=== PATIENT | male | born 1950 | race Caucasian/White ===

== ENCOUNTER → 2016-09-19 | Outpatient (CLI) | payer BC ==
[~2016-09-19] VITALS: Ht 193 cm; Wt 103.4 kg
[~2016-09-19] MED LIST: AMBIEN 10MG10 MG PO; ANDROGEL1% TOP; ASPIRIN E.C. 8181 MG PO; EPA FISH OIL1 SGL PO; FLAXSEED OIL1000 MG PO; FLONASE NASAL S16 GM; GLUCOSAMINE/CHONDROI PO; MULTI VITAMINS1 TAB PO; NIFEREX-150 501 CA1 PO; PRIL40 PO; PROBIOTICA100 Milli1 PO; RELAFEN750 MG PO; SINGULAIR 110 MG/TAB PO; VICODIN 5/5001 UDTAB PO; [UNRECOGNIZED DRUG - OTHER]
[2016-09-19 08:33] VITALS: BP 146/87; PULSE 64
[2016-09-19 09:45] VITALS: BP 134/93; PULSE 59
== END ==
LOC: COL.RAD 08:00
DX: M54.2 Cervicalgia (principal)
CPT/HCPCS: J1100

== ENCOUNTER 2017-08-11 08:15 | Outpatient (RCR) | payer BC | END 2017-08-16 | LOC: WSPT | DX: M54.5 Low back pain (principal); M25.50 Pain in unspecified joint ==

== ENCOUNTER → 2017-08-18 | Outpatient (CLI) | payer BC | LOC: COL.RAD 07:26 | DX: M50.322 Other cervical disc degeneration at C5-C6 level (principal); M99.71 Connective tissue and disc stenosis of intervertebral foramina of cervical region; M47.812 Spondylosis without myelopathy or radiculopathy, cervical region ==